=== PATIENT | male | born 1990 | race Two or more races ===

== ENCOUNTER 2021-11-11 18:53 | Emergency (ER) | payer OTHER ==
[~2021-11-11] VITALS: Ht 172.7 cm; Wt 78.2 kg
[2021-11-11 19:10] VITALS: BP 134/75
[2021-11-11] MEDS ORDERED: TETANUS-DIPTH-ACEL PERTUSSIS 0.5ML SYR Tdap IM ONE (20:15)
[2021-11-11] MEDS ORDERED: cefTRIAXone W LIDOCAINE 1 GM IM IM ONE (20:30)
[2021-11-11] MEDS ORDERED: cefTRIAXone SOD 1,000 MG VL IM ONE (20:45)
[2021-11-11] MEDS ORDERED: DOXY-346 PO (21:12)
== END 2021-11-11 21:30 | disposition home or self-care (01) ==
LOC: ER 18:53
DX: S60.361A Insect bite (nonvenomous) of right thumb, initial encounter (principal); N34.2 Other urethritis; Z88.0 Allergy status to penicillin; W57.XXXA Bitten or stung by nonvenomous insect and other nonvenomous arthropods, initial encounter; Y93.89 Activity, other specified; Y92.89 Other specified places as the place of occurrence of the external cause; Y99.8 Other external cause status
CPT/HCPCS: 90471; 90715; 96372; 99284; J0696